=== PATIENT | male | born 1965 | race Caucasian/White ===

== ENCOUNTER → 2020-03-10 12:40 | Outpatient (BNVA) | payer BC, SELFPAY | PROVIDERS: PCP Internal Medicine; Visit Provider Surgery | DX: K80.10 Calculus of gallbladder with chronic cholecystitis without obstruction (principal) ==

== ENCOUNTER 2020-03-16 06:01 | Day surgery (SDC) | payer BC, SELFPAY ==
[2020-03-15 10:17] VITALS: BMI 25.7
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
[2020-03-16] VITALS (11 sets, daily range): BP systolic 110–137; BP diastolic 70–78; PULSE 61–96; RESP 16–18; TEMP 36.4–36.8; O2SAT 95–97
--- NOTE | 2020-03-16 | ECG_ITS ---
Test Reason : CAD PREOP Blood Pressure : / mmHG Vent. Rate : 056 BPM Atrial Rate : 056 BPM P-R Int : 140 ms QRS Dur : 106 ms QT Int : 434 ms P-R-T Axes : 038 000 010 degrees QTc Int : 418 ms Sinus bradycardia Moderate voltage criteria for LVH, may be normal variant Borderline ECG No previous ECGs available Referred By: Lydia Zhou Electronically Signed By:JOSE CHANDLER
[2020-03-16] MEDS: Lactated Ringers 1,000 ML 100 ML IVCONT (06:30)
[2020-03-16] MEDS: Scopolamine 1.5 MG PATCH.TD.3 TRANSDERMA (06:51)
--- NOTE | 2020-03-16 07:34 | MHC.SHP ---
Pre-Procedural Eval Section A The patient is an INPATIENT: No The History & Physical has been completed within 30 days and I have reviewed it.: Yes Section B Chief Complaint: Symptomatic Chronic Calculous Cholecystitis Allergies: Allergies Allergy/AdvReac Type Severity Reaction Status Date / Time No Known Allergies Allergy Mild NONE Verified 03/10/20 15:03 Plan Diagnosis/Plan: Unchanged Patient has been examined and remains a candidate for the planned procedure
--- NOTE | 2020-03-16 08:59 | PM.OP ---
Brief Operative Note Date of procedure: 03/16/20 Pre-op diagnosis: chronic cholecystitis, cholelithiasis Post-op diagnosis: same Procedure: Laparoscopic cholecystectomy Surgeon: Chetna Cobian MD Anesthesia: GETA Preparer Samples And Repairs: Connie Salgado Estimated blood loss (mL): 10 Pathology: other (gallbladder) Condition: stable Disposition: PACU
[2020-03-16] MEDS: fentaNYL citrate/PF 100 MCG/2 ML VIAL 50 MCG IVPUSH ×2 (09:38→09:50)
--- NOTE | 2020-03-16 09:46 | P.OP_ITS ---
Operative Note Operative Note Narrative: Preoperative diagnosis: Chronic cholecystitis and cholelithiasis Postoperative diagnosis same Procedure laparoscopic cholecystectomy Supervisor Electronic Coils: Connie Cutler Anesthesia: General endotracheal Estimated blood loss: 10 cc Specimen: Gallbladder Immediate complications: None Indications: Mr. Cormier 54-year-old gentleman with recent onset Of episodic right upper quadrant abdominal pain exacerbated by eating. Workup reveals gallstones. procedure in detail: with the patient in the supine position following induction of adequate general anesthesia, the abdomen was prepped with ChloraPrep and was draped sterilely. Time-out procedure was performed. 2 g of cefotetan were infused for antibiotic prophylaxis. Each trocar site was infiltrated with local anesthetic prior to making incisions. An infraumbilical incision was made and was carried down to the level the fascia. The fascia was elevated in the midline with Aubrie clamp and holding sutures of 0 Polysorb were placed on either side. The Aubrie was then released and the fascia was split in the midline. The peritoneal cavity was entered and has on trocar was inserted and stabilized with the fascial sutures. The abdomen was insufflated with carbon dioxide to pressure 15 mm of mercury. The 0 degree 5 mm laparoscopic was inserted and the abdomen was inspected. No abnormalities were noted initially. The patient was placed in reverse Trendelenburg position and rotated left side down. The gallbladder was grasped along the fundus at the anterior liver margin. It was then elevated. It adhesions were present between the omentum and the gallbladder surface. These were taken down using a combination of blunt and cautery dissection. The gallbladder was then grasped along the fundus and retracted laterally. Dissection was continued along the anterior aspect of the infundibulum moving medially to expose the gallbladder cystic duct junction. The cystic duct was then dissected free circumferentially yet adjacent to the gallbladder. Dissection was carried along the superomedial aspect of the gallbladder to identify the cystic artery. Two branches were identified and were dissected free. Dissection was continued lateral to the cystic artery to obtain the critical view. Once this was done, the cystic duct was doubly clipped just medial to the junction with the gallbladder, singly clipped at the junction with the gallbladder and divided between clips. The branches of the cystic artery were then doubly clipped on the patient's side and singly clipped on the gallbladder side and divided. The gallbladder was dissected free from the liver bed using a combination of gentle blunt and cautery dissection. As the gallbladder was being freed from the liver bed, an additional small vascular branch was identified and was divided between clips. Once the gallbladder was completely freed from the liver bed, laparoscopic was removed and reinserted through the upper medial trocar. The specimen pouch was inserted through the Rosa trocar and advanced into the right upper quadrant. The gallbladder was placed into the pouch and the pouch was closed and withdrawn Along with the Rosa trocar. The Rosa was then reinserted and the laparoscopic was placed back through it. The operative field was visualized. Clips were intact on the cystic duct and cystic artery stumps. There was no evidence of bleeding. The right upper quadrant was copiously irrigated with saline solution. Patient was turned to the supine position. Upper abdominal trocars were removed under direct vision. No bleeding was noted from trocar sites. Insufflation was discontinued and the Dozier trocar was removed With the laparoscope. Fascia at the Rosa site was closed with figure 8 suture of 0 Polysorb and holding sutures were tied to 1 another. Skin incisions were closed with subcuticular sutures of 4 0 Polysorb and Steri-Strips gauze and small adhesive dressings were applied. He tolerated the procedure well and was transported to the PACU in stable condition. There were no immediate complications.
[2020-03-16] MEDS: oxyCODONE HCl Immed Release 5 MG TABLET PO (10:12)
[2020-03-16] MEDS: ondansetron HCL 4 MG/2 ML VIAL IVPUSH (10:38)
--- NOTE | 2020-03-16 11:35 | HO.POSTANES ---
Post Anesthesia Evaluation Post Anesthesia Evaluation Vital Signs: Vital Signs Temp Pulse Resp BP Pulse Ox 03/16/20 10:27 97.5 F 65 18 136/73 97 03/16/20 10:12 69 18 137/78 96 03/16/20 09:55 65 18 133/77 96 03/16/20 09:50 96 18 130/77 95 03/16/20 09:44 61 18 116/77 95 03/16/20 09:39 64 18 116/71 97 03/16/20 09:24 62 18 110/75 96 03/16/20 09:19 63 18 125/70 95 03/16/20 09:14 62 18 122/71 95 03/16/20 09:09 98.3 F 66 18 134/76 95 03/16/20 06:42 97.5 F 62 16 136/78 97 Anesthesia: General Endotracheal-GETA Mental Status: Awake Pain Control: Satisfactory Nausea/Vomiting: None Hydration: Adequate Anesthesia-Related Issues: No Anes. Related Issues
--- NOTE | 2020-03-17 08:24 | PC.NURSE ---
Pt. called on 03-17-2020 at 0830 for post op call. Pt reports unrelieved pain despite taking pain medications. Pt referred to .
== END 2020-03-16 11:35 | disposition home or self-care (01) ==
PROVIDERS: PCP Internal Medicine; Visit Provider Surgery
PROC: 0FT44ZZ Resection of Gallbladder, Percutaneous Endoscopic Approach (ICD-10-PCS; CPT 47562; principal; 2020-03-16 07:30)
DX: K80.10 Calculus of gallbladder with chronic cholecystitis without obstruction (principal); K82.8 Other specified diseases of gallbladder; I10 Essential (primary) hypertension; G89.29 Other chronic pain; M54.9 Dorsalgia, unspecified; I71.2 Thoracic aortic aneurysm, without rupture; Q23.1 Congenital insufficiency of aortic valve; Z87.442 Personal history of urinary calculi; Z80.1 Family history of malignant neoplasm of trachea, bronchus and lung; Z79.899 Other long term (current) drug therapy; Z79.82 Long term (current) use of aspirin
CPT/HCPCS: 47562; 88304; 93005; 93010; J0131; J0330; J0690; J1100; J2250; J2405; J2765; J3010

== ENCOUNTER → 2020-03-18 10:34 | Outpatient (BNVA) | payer BC, SELFPAY | PROVIDERS: PCP Internal Medicine; Visit Provider Surgery | DX: Z76.89 Persons encountering health services in other specified circumstances (principal) ==

== ENCOUNTER → 2020-03-23 15:46 | Outpatient (BNVA) | payer BC, SELFPAY | PROVIDERS: PCP Internal Medicine; Visit Provider Surgery | DX: Z13.89 Encounter for screening for other disorder (principal) | CPT/HCPCS: 99024 ==

== ENCOUNTER 2020-04-09 09:41 | Outpatient (REF) | payer BC, SELFPAY ==
[2020-04-09 11:18] LABS: Alanine Aminotransferase 13 U/L (0-40); Albumin Level 4.3 g/dL (3.5-5.0); Alkaline Phosphatase 57 U/L (39-117); Anion Gap 12 (12-20); Aspartate Amino Transferase 13 U/L (5-37); Bilirubin Total 0.8 mg/dL (0.0-1.0); Blood Urea Nitrogen 16 mg/dL (9-16); Calcium 8.5 mg/dL (8.4-10.2); Carbon Dioxide 27 mmol/L (22-29); Chloride 104 mmol/L (96-108); Cholesterol 125 mg/dL; Estimated Glomerular Filt Rate > 60; Glucose Fasting 97 mg/dL (60-99); HDL Cholesterol 41 mg/dL; LDL Cholesterol Calculated 71 mg/dl; Potassium 4.3 mmol/l (3.3-5.1); Sodium 139 mmol/L (135-145); Total Protein 6.8 g/dL (6.5-8.0); Triglycerides 66 mg/dL
== END 2020-04-09 09:42 | disposition home or self-care (01) ==
LOC: HO.LAB 09:41
PROVIDERS: Visit Provider Internal Medicine
DX: I10 Essential (primary) hypertension (principal)
CPT/HCPCS: 80053; 80061

== ENCOUNTER → 2020-04-12 15:06 | Outpatient (BNVA) | payer BC, SELFPAY | PROVIDERS: PCP Internal Medicine; Visit Provider Surgery | DX: Z76.89 Persons encountering health services in other specified circumstances (principal) ==

== ENCOUNTER → 2020-04-22 14:49 | Outpatient (REF) | payer BC, SELFPAY ==
--- NOTE | 2020-04-22 15:00 | CA_ITS ---
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 Normal LV systolic and diastolic function 2. Mildly dilated ascending aorta 3. Bicuspid aortic valve with eccentric mild aortic regurgitation 4. Normal RV systolic pressure 5. No pericardial effusion Findings Left Ventricle Normal left ventricular size, thickness, and systolic function. The visually estimated ejection fraction is between 60-65%. Diastolic function is normal for age. Right Ventricle Normal right ventricular cavity size and systolic function. Atria Both atria are normal in size. There is no evidence of interatrial shunt. Aortic Valve There is a bicuspid aortic valve. There is no aortic valve stenosis. There is mild aortic valve regurgitation. Mitral Valve Normal mitral valve structure and function. There is trace mitral valve regurgitation. There is no mitral valve stenosis. Pulmonic Valve The pulmonic valve is likely normal. There is trace to mild pulmonic valve regurgitation. Tricuspid Valve Normal tricuspid valve structure. There is mild tricuspid valve regurgitation. The right ventricular systolic pressure is normal. The right ventricular systolic pressure is 37 mmHg. Normal right atrial pressure. There is no evidence of pulmonary hypertension. Great Vessels The pulmonary artery was not well visualized. There is mild dilatation of the ascending aorta. Venous The inferior vena cava is normal in size and collapses greater than 50% with inspiration. Pericardium/Pleural There is no evidence of pericardial effusion. Prior Study Comparison No significant change compared to prior study dated: 04/30/2019. Measurements 2D Linear Measurements IVSd: 1.35 0.6-0.9/0.6-1.0 cm LVIDd: 5.19 3.9-5.3/4.2-5.9 cm LVIDd Index: 2.72 2.4-3.2/2.2-3.1 cm/m2 LVIDs: 2.82 2.0-3.6 cm LVPWd: 1.38 0.7-1.1 cm Ao Root: 3.90 2.1-3.5 cm LA Diam: 4.30 2.7-3.8/3.0-4.0 cm LAIDs Index: 2.25 1.5-2.3 cm/m2 LV Mass: 371.27 67-162/88-224 g LV Mass Index: 194.38 43-95/49-115 g/m2 LVOT Diam: 2.50 3.0+(-)1.3 cm Mitral Valve MV Pk E: 0.80 MV PK A: 0.58 MV Decel Time: 248.00 E/A: 1.40 E'Lateral: 12.30 E'Medial: 7.16 E/E' Med: 11.10 E/E' Lat: 6.50 PHT: 73.00 MVA PHT: 3.01 Decel [place]: 3.21 Aortic Valve AoV Pk Afshin: 2.24 AoV Mn Afshin: 1.53 AoV VTI: 0.52 AoV Pk Grad: 20.00 Aov Mn Grad: 11.00 KENA Cont.VTI: 2.75 AI Pk Afshin: 4.24 AI [place]: 2.09 LVOT LVOT Pk Afshin: 1.22 LVOT Mn Afshin: 0.85 LVOT VTI: 0.29 LVOT Pk Grad: 6.00 LVOT Mn Grad: 3.00 LVOT Diam: 2.50 LVOT Area: 4.91 Diastolic Function MV Pk E: 0.80 MV Pk A: 0.58 E/A: 1.40 E'Medial: 7.16 E/E' Med: 11.10 E' Laterial: 12.30 E/E' Lat: 6.50 Tricuspid Valve TR Pk Afshin: 2.71 TR Pk Grad: 29.00 RA Press: 8.00 RVSP: 37.00 Great Vessels Aorta Ao Root-2D: 3.90 2.0-3.7 cm Ao Asc: 4.10 2.1-3.4 cm Pulmonary Valve PV Pk Afshin: 0.92 Peak PV Grad: 3.00 Updated in Other Vendor System with Status of Final Celio Sotelo MD electronically signed on 04/22/2020 4:25:09 PM with status of Final
== END ==
LOC: HO.CARD 14:49
PROVIDERS: PCP Internal Medicine; Visit Provider Internal Medicine Cardiovascular Disease
DX: I35.1 Nonrheumatic aortic (valve) insufficiency (principal); R07.9 Chest pain, unspecified
CPT/HCPCS: 93306

== ENCOUNTER → 2020-05-09 13:04 | Outpatient (BNVA) | payer BC, SELFPAY | PROVIDERS: PCP Internal Medicine; Referring Provider Internal Medicine; Visit Provider Internal Medicine Cardiovascular Disease | DX: Z76.89 Persons encountering health services in other specified circumstances (principal) ==

== ENCOUNTER 2020-07-27 16:04 | Outpatient (REF) | payer BC, SELFPAY ==
--- NOTE | ~2020-07-27 | XR_ITS ---
EXAMINATION: XR KNEE, LEFT CLINICAL INFORMATION: Left knee pain. COMPARISON: None TECHNIQUE: Four views of the left knee. FINDINGS: Mild tricompartmental joint space narrowing and chondrocalcinosis is seen. There is no acute fracture or dislocation. No significant joint effusion is seen. The soft tissues are unremarkable. XR/XR knee LT 4V IMPRESSION: Mild check for metal degenerative joint changes without overt acute abnormality.
--- NOTE | ~2020-07-27 | US_ITS ---
EXAMINATION: US VENOUS ULTRASOUND WITH DOPPLER LOWER EXTREMITY, LEFT CLINICAL INFORMATION: Left lower extremity pain and swelling. Assess for occult DVT. COMPARISON: Left lower extremity venous ultrasound with Doppler 12/02/2019 TECHNIQUE: Ultrasound of the deep veins is performed from the hip to the calf with compression sonography and color and pulse Doppler assessment. Spectral analysis with color-flow imaging is performed. FINDINGS: There is normal venous compression and respiratory variation and augmented flow. The visualized common femoral vein, superficial femoral vein, profunda femoral vein, popliteal vein, and the trifurcation region shows no evidence of deep venous thrombosis. There is posterior medial popliteal fossa cyst measuring 3.5 x 2.6 x 3.2 cm. Preliminary report provided by cook 3 pastry at 1635 hours. US/US venous duplex LE IMPRESSION: 1. No DVT demonstrated in the left lower extremity. 2. Popliteal fossa cyst 3.5 x 2.6 x 3.2 cm.
== END 2020-07-27 16:05 | disposition home or self-care (01) ==
LOC: HO.US 16:04
PROVIDERS: Visit Provider Nurse Practitioner Family
DX: M25.562 Pain in left knee (principal); M79.662 Pain in left lower leg
CPT/HCPCS: 73564; 93971

== ENCOUNTER 2021-01-14 08:43 | Outpatient (REF) | payer BC, SELFPAY ==
[2021-01-14 09:52] LABS: MANUAL DIFF FLAG NO
[2021-01-14 10:14] LABS: Basophils Percent Auto 0.7 % (0-2); Eosinophils Absolute Auto 0.2 X10*3/uL (0.0-0.4); Eosinophils Percent Auto 3.7 % (0-4); Hematocrit 42.2 % (42-52); Hemoglobin 14.2 g/dl (14.0-18.0); Imm Gran Abs Auto 0.01 X10*3/uL (0.00-0.03); Imm Gran Pct Auto 0.2 % (0.0-0.4); Lymphocytes Absolute Auto 1.4 X10*3/uL (1.2-4.9); Lymphocytes Percent Auto 31.5 % (20-40); Mean Corpuscular HGB Conc 33.6 g/dl (31.0-36.0); Mean Corpuscular Hemoglobin 33.1 pg (27.0-33.0); Mean Corpuscular Volume 98.4 fL (80-98); Mean Platelet Volume 10.4 fL (9.4-12.4); Monocytes Absolute Auto 0.5 X10*3/uL (0.1-1.2); Monocytes Percent Auto 10.3 % (2-11); Neutrophils Absolute Auto 2.3 X10*3/uL (2.0-8.3); Neutrophils Percent Auto 53.6 % (45-73); Platelet Count 185 X10*3/uL (160-400); Red Blood Count 4.29 X10*6/uL (4.60-5.80); Red Cell Distribution Width 11.9 % (11.0-16.0); White Blood Count 4.4 X10*3/uL (4.8-10.8)
[2021-01-14 10:23] LABS: Alanine Aminotransferase 12 U/L (0-40); Albumin Level 4.1 g/dL (3.5-5.0); Alkaline Phosphatase 59 U/L (39-117); Anion Gap 11 (12-20); Aspartate Amino Transferase 17 U/L (5-37); Bilirubin Total 0.8 mg/dL (0.0-1.0); Blood Urea Nitrogen 17 mg/dL (9-16); Calcium 9.1 mg/dL (8.4-10.2); Carbon Dioxide 27 mmol/L (22-29); Chloride 106 mmol/L (96-108); Cholesterol 118 mg/dL; Estimated Glomerular Filt Rate > 60; Glucose Fasting 96 mg/dL (60-99); HDL Cholesterol 36 mg/dL; LDL Cholesterol Calculated 69 mg/dl; Potassium 4.4 mmol/L (3.3-5.1); Sodium 140 mmol/L (135-145); Total Protein 6.6 g/dL (6.5-8.0); Triglycerides 68 mg/dL
== END 2021-01-14 08:44 | disposition home or self-care (01) ==
LOC: HO.LAB 08:43
PROVIDERS: PCP Internal Medicine; Visit Provider Internal Medicine
DX: E78.5 Hyperlipidemia, unspecified (principal); I10 Essential (primary) hypertension; I48.0 Paroxysmal atrial fibrillation
CPT/HCPCS: 36415; 80053; 80061; 85025

== ENCOUNTER → 2021-04-28 12:38 | Outpatient (REF) | payer BC, SELFPAY ==
--- NOTE | 2021-04-28 12:42 | CA_ITS ---
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 - Normal right ventricular cavity size and systolic function. - The left atrium is likely dilated. - There is a bicuspid aortic valve. There is mild calcification of the aortic valve. There is no aortic valve stenosis. There is mild aortic valve regurgitation. - There is mild dilatation of the ascending aorta measuring 4.10 cm and mild dilatation of the aortic arch measuring 4.10 cm. - There is mildly increased left ventricular wall thickness. Findings Left Ventricle Normal left ventricular size and systolic function. There is mildly increased left ventricular wall thickness. The visually estimated ejection fraction is between 65-70%. There is no evidence of regional wall motion abnormalities. Diastolic function is normal for age. Right Ventricle Normal right ventricular cavity size and systolic function. Atria The left atrium is likely dilated. Aortic Valve There is a bicuspid aortic valve. There is mild calcification of the aortic valve. There is no aortic valve stenosis. There is mild aortic valve regurgitation. Mitral Valve Normal mitral valve structure and function. There is no mitral valve regurgitation. There is no mitral valve stenosis. Pulmonic Valve Normal pulmonic valve structure and function. There is trace pulmonic valve regurgitation. Tricuspid Valve Normal tricuspid valve structure and function. There is trace tricuspid valve regurgitation. Normal right atrial pressure. There is no evidence of pulmonary hypertension. Great Vessels There is mild dilatation of the ascending aorta measuring 4.10 cm and mild dilatation of the aortic arch measuring 4.10 cm. The visualized portions of the pulmonary artery and branches are normal. Venous The inferior vena cava is normal in size and collapses greater than 50% with inspiration. Pericardium/Pleural There is no evidence of pericardial effusion. Prior Study Comparison Changes noted compared to prior study dated: 04/22/2020. Mildly increased LV wall thickness. Measurements 2D Linear Measurements IVSd: 1.26 0.6-0.9/0.6-1.0 cm LVIDd: 5.18 3.9-5.3/4.2-5.9 cm LVIDd Index: 2.68 2.4-3.2/2.2-3.1 cm/m2 LVIDs: 2.98 2.0-3.6 cm LVPWd: 1.24 0.7-1.1 cm Ao Root: 3.90 2.1-3.5 cm LA Diam: 3.60 2.7-3.8/3.0-4.0 cm LAIDs Index: 1.87 1.5-2.3 cm/m2 LV Mass: 326.55 67-162/88-224 g LV Mass Index: 169.20 43-95/49-115 g/m2 LVOT Diam: 2.20 3.0+(-)1.3 cm Mitral Valve MV Pk E: 0.46 MV PK A: 0.70 MV Decel Time: 301.00 E/A: 0.70 E'Lateral: 13.80 E'Medial: 7.51 E/E' Med: 6.10 E/E' Lat: 3.30 PHT: 88.00 MVA PHT: 2.50 Decel [place]: 1.52 Aortic Valve AoV Pk Afshin: 2.00 AoV Mn Afshin: 1.35 AoV VTI: 0.45 AoV Pk Grad: 16.00 Aov Mn Grad: 8.00 KENA Cont.VTI: 2.71 AI Pk Afshin: 3.34 AI [place]: 1.45 LVOT LVOT Pk Afshin: 1.33 LVOT Mn Afshin: 0.92 LVOT VTI: 0.32 LVOT Pk Grad: 7.00 LVOT Mn Grad: 4.00 LVOT Diam: 2.20 LVOT Area: 3.80 Diastolic Function MV Pk E: 0.46 MV Pk A: 0.70 E/A: 0.70 E'Medial: 7.51 E/E' Med: 6.10 E' Laterial: 13.80 E/E' Lat: 3.30 Right Ventricle TAPSE (mm): 3.23 Tricuspid Valve TR Pk Afshin: 1.59 TR Pk Grad: 10.00 RA Press: 3.00 RVSP: 13.00 Great Vessels Aorta Ao Root-2D: 3.90 2.0-3.7 cm Ao Asc: 4.10 2.1-3.4 cm Ao Arch: 4.10 Pulmonary Valve PV Pk Afshin: 1.00 Peak PV Grad: 4.00 Updated in Other Vendor System with Status of Final Denis Malloyr MD electronically signed on 05/01/2021 7:42:30 PM with status of Final
== END ==
LOC: HO.CARD 12:38
PROVIDERS: PCP Internal Medicine; Visit Provider Internal Medicine Cardiovascular Disease
DX: I71.2 Thoracic aortic aneurysm, without rupture (principal); I48.0 Paroxysmal atrial fibrillation; I35.1 Nonrheumatic aortic (valve) insufficiency; I10 Essential (primary) hypertension
CPT/HCPCS: 93306

== ENCOUNTER → 2021-05-09 15:01 | Outpatient (BNVA) | payer BC, SELFPAY | PROVIDERS: PCP Internal Medicine; Referring Provider Internal Medicine; Visit Provider Internal Medicine Cardiovascular Disease ==

== ENCOUNTER 2021-06-05 06:51 | Outpatient (REF) | payer BC, SELFPAY ==
[2021-06-05 07:01] LABS: MANUAL DIFF FLAG NO
[2021-06-05 07:20] LABS: Basophils Percent Auto 0.4 % (0-2); Eosinophils Absolute Auto 0.3 X10*3/uL (0.0-0.4); Hematocrit 43.5 % (42.0-52.0); Hemoglobin 14.5 g/dl (14.0-18.0); Imm Gran Abs Auto 0.04 X10*3/uL (0.00-0.03); Imm Gran Pct Auto 0.4 % (0.0-0.4); Lymphocytes Absolute Auto 2.1 X10*3/uL (1.2-4.9); Lymphocytes Percent Auto 19.5 % (20-40); Mean Corpuscular HGB Conc 33.3 g/dl (31.0-36.0); Mean Corpuscular Volume 99.1 fL (80.0-98.0); Mean Platelet Volume 9.7 fL (9.4-12.4); Neutrophils Absolute Auto 7.3 x10*3/uL (2.0-8.3); Neutrophils Percent Auto 67.7 % (45-73); Platelet Count 197 X10*3/uL (160-400); Red Blood Count 4.39 X10*6/uL (4.60-5.80); Red Cell Distribution Width 11.9 % (11.0-16.0); White Blood Count 10.8 X10*3/uL (4.8-10.8)
== END 2021-06-05 06:52 | disposition home or self-care (01) ==
LOC: HO.LAB 06:51
PROVIDERS: PCP Internal Medicine; Visit Provider Internal Medicine
DX: D72.819 Decreased white blood cell count, unspecified (principal)
CPT/HCPCS: 36415; 85025

== ENCOUNTER 2021-10-14 09:36 | Outpatient (REF) | payer BC, SELFPAY ==
[2021-10-14 11:19] LABS: Alanine Aminotransferase 14 U/L (0-40); Albumin Level 4.3 g/dL (3.5-5.0); Alkaline Phosphatase 65 U/L (39-117); Anion Gap 11 (12-20); Aspartate Amino Transferase 20 U/L (5-37); Bilirubin Total 0.9 mg/dL (0.0-1.0); Blood Urea Nitrogen 19 mg/dL (9-16); Calcium 9.7 mg/dL (8.4-10.2); Carbon Dioxide 26 mmol/L (22-29); Chloride 108 mmol/L (96-108); Cholesterol 139 mg/dL; Estimated Glomerular Filt Rate > 60; Glucose Fasting 95 mg/dL (60-99); HDL Cholesterol 42 mg/dL; LDL Cholesterol Calculated 85 mg/dl; Potassium 4.4 mmol/L (3.3-5.1); Sodium 141 mmol/L (135-145); Total Protein 7.2 g/dL (6.5-8.0); Triglycerides 61 mg/dL
== END 2021-10-14 09:37 | disposition home or self-care (01) ==
LOC: HO.LAB 09:36
PROVIDERS: PCP Internal Medicine; Visit Provider Internal Medicine
DX: E78.5 Hyperlipidemia, unspecified (principal); E78.00 Pure hypercholesterolemia, unspecified
CPT/HCPCS: 36415; 80053; 80061

== ENCOUNTER 2022-03-10 08:47 | Outpatient (REF) | payer OTHER, SELFPAY ==
[2022-03-10 10:04] LABS: Alanine Aminotransferase 11 U/L (0-40); Albumin Level 4.4 g/dL (3.5-5.0); Alkaline Phosphatase 57 U/L (39-117); Anion Gap 12 (12-20); Aspartate Amino Transferase 13 U/L (5-37); Bilirubin Total 0.6 mg/dL (0.0-1.0); Blood Urea Nitrogen 19 mg/dL (9-16); Calcium 9.3 mg/dL (8.4-10.2); Carbon Dioxide 26 mmol/L (22-29); Chloride 108 mmol/L (96-108); Cholesterol 130 mg/dL; Estimated Glomerular Filt Rate > 60; Glucose Fasting 95 mg/dL (60-99); HDL Cholesterol 39 mg/dL; LDL Cholesterol Calculated 80 mg/dl; Potassium 4.4 mmol/L (3.3-5.1); Sodium 142 mmol/L (135-145); Total Protein 6.8 g/dL (6.5-8.0); Triglycerides 57 mg/dL
== END 2022-03-10 08:48 | disposition home or self-care (01) ==
LOC: HO.LAB 08:47
PROVIDERS: PCP Internal Medicine; Visit Provider Internal Medicine
DX: E78.5 Hyperlipidemia, unspecified (principal); E78.00 Pure hypercholesterolemia, unspecified
CPT/HCPCS: 36415; 80053; 80061

== ENCOUNTER → 2022-04-24 15:44 | Outpatient (REF) | payer OTHER, SELFPAY ==
--- NOTE | 2022-04-24 15:47 | CA_ITS ---
Transthoracic Echocardiogram Patient (Last, First, Middle): Ned Cormier A Gender: Male Date of : 1965 Age: 56 Procedure Date: 04/24/2022 Procedure Type: Transthoracic Echocardiogram Location: OP Height: 172.72 cm Weight: 78.93 kg BSA: 1.93 m2 Heart Rate: bpm BP: 126 / 72 mmHg Associate Material Handler: [id number] Referring MD: Celio Sotelo MD Dba Developer: Celio Sotelo MD Symptoms: I71.2 - Thoracic aortic aneurysm, without rupture Study Quality: Fair ECG Rhythm: Sinus Conclusions: - 1. Normal LV systolic function with mild LVH with grade 1 diastolic dysfunction 2. Mildly dilated left atrium 3. Mild aortic regurgitation 4. Mildly dilated ascending aorta at 4.2 cm 5. No pericardial effusion Findings Left Ventricle Normal left ventricular size and systolic function. There is mildly increased left ventricular wall thickness. The visually estimated ejection fraction is between 65-70%. Spectral Doppler is indicative of an impaired relaxation filling pattern. E/E prime ratio is <8, consistent with normal filling pressures. Evidence suggests grade I (mild) diastolic dysfunction. Right Ventricle Normal right ventricular cavity size and systolic function. Atria The left atrium is mildly dilated. There is lipomatous hypertrophy of the interatrial septum. There is no evidence of interatrial shunt. The right atrium is normal in size. Aortic Valve There is mild calcification of the aortic valve. There is moderate thickening of the aortic valve. There is no aortic valve stenosis. There is mild aortic valve regurgitation. Mitral Valve There is mild anterior and posterior mitral leaflet thickening. There is no mitral valve regurgitation. There is no mitral valve stenosis. Pulmonic Valve The pulmonic valve is likely normal. There is mild pulmonic valve regurgitation. Tricuspid Valve Normal tricuspid valve structure. Tricuspid regurgitation envelope is inadequate for calculation of right ventricular systolic pressure. Normal right atrial pressure. Great Vessels The pulmonary artery was not well visualized. There is mild dilatation of the ascending aorta measuring 4.20 cm. Venous The inferior vena cava is normal in size and collapses greater than 50% with inspiration. Pericardium/Pleural There is no evidence of pericardial effusion. Prior Study Comparison No significant change compared to prior study dated: 04/28/2021. Measurements 2D Linear Measurements IVSd: 1.25 0.6-0.9/0.6-1.0 cm LVIDd: 5.14 3.9-5.3/4.2-5.9 cm LVIDd Index: 2.66 2.4-3.2/2.2-3.1 cm/m2 LVIDs: 2.53 2.0-3.6 cm LVPWd: 1.19 0.7-1.1 cm LA Diam: 3.70 2.7-3.8/3.0-4.0 cm LAIDs Index: 1.92 1.5-2.3 cm/m2 LV Mass: 311.71 67-162/88-224 g LV Mass Index: 161.51 43-95/49-115 g/m2 LVOT Diam: 2.20 3.0+(-)1.3 cm 2D Systolic Function EF 4C: 65.30 >55% EF 2C: 68.50 >55% EF BiP: 67.10 >55% Mitral Valve MV Pk E: 0.59 MV PK A: 0.54 MV Decel Time: 273.00 E/A: 1.10 E'Lateral: 9.36 E'Medial: 5.77 E/E' Med: 10.20 E/E' Lat: 6.30 PHT: 80.00 MVA PHT: 2.75 Decel Kent: 2.15 Aortic Valve AoV Pk Afshin: 1.96 AoV Mn Afshin: 1.25 AoV VTI: 0.42 AoV Pk Grad: 15.00 Aov Mn Grad: 8.00 KENA Cont.VTI: 2.92 AI Pk Afshin: 3.42 AI Kent: 1.56 LVOT LVOT Pk Afshin: 1.38 LVOT Mn Afshin: 0.91 LVOT VTI: 0.32 LVOT Pk Grad: 8.00 LVOT Mn Grad: 4.00 LVOT Diam: 2.20 LVOT Area: 3.80 Diastolic Function MV Pk E: 0.59 MV Pk A: 0.54 E/A: 1.10 E'Medial: 5.77 E/E' Med: 10.20 E' Laterial: 9.36 E/E' Lat: 6.30 Right Ventricle TAPSE (mm): 29.10 TVS' Afshin: 18.00 Tricuspid Valve RA Press: 3.00 Great Vessels Aorta Sinus of Valsalva: 4.09 2.0-3.[address] Ridge: 3.46 1.7-3.4 cm Ao Asc: 4.20 2.1-3.4 cm Ao Arch: 3.10 Updated in Other Vendor System with Status of Final Celio Sotelo MD electronically signed on 04/25/2022 12:47:20 PM with status of Final
== END ==
LOC: HO.CARD 15:44
PROVIDERS: PCP Internal Medicine; Visit Provider Internal Medicine Cardiovascular Disease
DX: I71.20 Thoracic aortic aneurysm, without rupture, unspecified (principal)
CPT/HCPCS: 93306

== ENCOUNTER → 2022-05-09 14:41 | Outpatient (BNVA) | payer OTHER, SELFPAY | PROVIDERS: PCP Internal Medicine; Referring Provider Internal Medicine; Visit Provider Internal Medicine Cardiovascular Disease | DX: I48.0 Paroxysmal atrial fibrillation (principal); I71.20 Thoracic aortic aneurysm, without rupture, unspecified; I10 Essential (primary) hypertension | CPT/HCPCS: 93005 ==

== ENCOUNTER → 2022-05-14 08:33 | Outpatient (REF) | payer OTHER, SELFPAY ==
--- NOTE | 2022-05-14 08:36 | CA_ITS ---
Acquisition Time: 2022-05-14 08:50:03 Total Exercise Time: 00:09:15 Test Indications: AFIB Medications: SEE CHART Protocol: CHRIS Max HR: 093 BPM 56% of Pred: 164 BPM Max BP: 146/080 mmHG Max Work Load: 10.5 METS Exercise stress test with exercise 9 min 15 sec of Chris protocol, achieving 56% MPHR, 10.5 METs, with report of leg fatigue, mild sob and need to stop, no chest discomfort, with isolated PACs and PVCs, one 3 breat atrial run, with blunted chronotropic and normotensive response to exercise, with nondiagnostic EKG for ischemia due to suboptimal heart rate. Test reviewed with Dr Sotelo Referred By: Celio Sotelo Overread By: KARO BENTLEY
--- NOTE | 2022-05-14 08:36 | ECG_ITS ---
Test Reason : PAF Blood Pressure : / mmHG Vent. Rate : 052 BPM Atrial Rate : 052 BPM P-R Int : 150 ms QRS Dur : 108 ms QT Int : 430 ms P-R-T Axes : 052 017 030 degrees QTc Int : 399 ms Sinus bradycardia Otherwise normal ECG When compared with ECG of 16-MAR-2020 06:41, No significant change was found Referred By: Celio Sotelo Electronically Signed By:CELIO SOTELO MD
== END ==
LOC: HO.CARD 08:33
PROVIDERS: Visit Provider Internal Medicine Cardiovascular Disease
DX: I48.0 Paroxysmal atrial fibrillation (principal)
CPT/HCPCS: 93005; 93017

== ENCOUNTER → 2022-06-13 08:26 | Outpatient (REF) | payer OTHER, SELFPAY ==
--- NOTE | ~2022-06-13 | NM_ITS ---
Lexiscan Myocardial perfusion study Indication: Abnormal stress test, assess for ischemia Technique: The patient was brought in for a Lexiscan perfusion study on 06/13/2022 and was injected 0.4 mg of Lexiscan intravenously. Within a minute of this injection 30 mCi of sestamibi was given intravenously. Images were obtained using the SPECT gamma camera interlaced with the gating device. Images were obtained in supine position. Resting perfusion study was performed on 06/14/2022. Patient was administered 30 mCi of sestamibi intravenously at rest. Images were then obtained in supine position. Images were processed with the software and compared side to side in short axis, horizontal long axis and vertical long axis views. Total DLP 94mGy-cm. Findings: Raw acquisition reviewed. The stress perfusion study showed mildly diminished tracer uptake in the basal part of inferior wall. There is improvement with CT attenuation correction suggestive of diaphragmatic attenuation artifact. The gated study shows normal LV systolic function with calculated LVEF of 67%. LV cavity is normal in size. The gated study shows normal wall thickening and contraction of segments. Resting study shows diminished tracer uptake along the inferior wall towards the basal aspect. There is improvement with CT attenuation correction suggestive of diaphragmatic attenuation artifact. Gating at rest reveals normal wall motion with ejection fraction at 51%. The findings are consistent with fixed basal inferior defect likely from diaphragmatic attenuation artifact. No clear reversible defects. NM/NM nyla perf SPECT rest & str Impression: 1. Myocardial perfusion imaging study shows no clear evidence of any ischemia or infarction. Likely normal perfusion. 2. Gated LVEF is 67% during stress and 51% during rest. 3. Transient ischemic dilatation not present. EKG component of the test reported separately.
--- NOTE | 2022-06-13 08:29 | CA_ITS ---
Acquisition Time: 2022-06-13 08:50:44 Total Exercise Time: 00:02:00 Test Indications: Abnormal Treadmill Test Medications: ALPRAZOLAM AMLODIPINE ASA ATORVASTATIN METOPROLOL FLECAINIDE Protocol: LEXISCAN Max HR: 090 BPM 54% of Pred: 164 BPM Max BP: 142/062 mmHG Max Work Load: 1.6 METS Pharmacological stress test with Lexiscan injection, while walking slow on treadmill, with mild sob, no chest discomfort, without arrythmia, with normotensive response to injection, with nondiagnostic EKG for ischemia. In recovery he was treated with Aminophylline 75mg IVP to reverse Lexiscan. Nuclear images pending. Test reviewed with Dr Dee. Referred By: Victorina Tompkins Overread By: VICTORINA TOMPKINS
== END ==
LOC: HO.CARD 08:26
PROVIDERS: Visit Provider Nurse Practitioner Family
DX: I48.0 Paroxysmal atrial fibrillation (principal); R94.39 Abnormal result of other cardiovascular function study
CPT/HCPCS: 78452; 93017; A9500; J0280; J2785

== ENCOUNTER → 2022-07-31 12:37 | Outpatient (BNVA) | payer OTHER, SELFPAY | PROVIDERS: PCP Internal Medicine; Referring Provider Internal Medicine; Visit Provider Internal Medicine Cardiovascular Disease | DX: I48.0 Paroxysmal atrial fibrillation (principal); I71.20 Thoracic aortic aneurysm, without rupture, unspecified; I10 Essential (primary) hypertension | CPT/HCPCS: 93005 ==

== ENCOUNTER 2022-07-31 13:45 | Outpatient (REF) | payer OTHER, SELFPAY ==
[2022-07-31 14:55] LABS: Anion Gap 11 (12-20); Blood Urea Nitrogen 16 mg/dL (9-16); Calcium 9.3 mg/dL (8.4-10.2); Carbon Dioxide 28 mmol/L (22-29); Chloride 106 mmol/L (96-108); Estimated Glomerular Filt Rate > 60; Glucose Random 74 mg/dL (60-115); Potassium 4.6 mmol/L (3.3-5.1); Sodium 140 mmol/L (135-145)
== END 2022-07-31 13:46 | disposition home or self-care (01) ==
LOC: HO.LAB 13:45
PROVIDERS: PCP Internal Medicine; Visit Provider Internal Medicine Cardiovascular Disease
DX: I48.0 Paroxysmal atrial fibrillation (principal); I71.20 Thoracic aortic aneurysm, without rupture, unspecified; I10 Essential (primary) hypertension
CPT/HCPCS: 36415; 80048

== ENCOUNTER 2023-02-18 15:20 | Outpatient (REF) | payer OTHER, SELFPAY ==
[2023-02-18 17:49] LABS: Anion Gap 12 (12-20); Blood Urea Nitrogen 15 mg/dL (9-16); Calcium 9.7 mg/dL (8.4-10.2); Carbon Dioxide 27 mmol/L (22-29); Chloride 108 mmol/L (96-108); Estimated Glomerular Filt Rate > 60; Glucose Random 87 mg/dL (60-115); Potassium 4.1 mmol/L (3.3-5.1); Sodium 143 mmol/L (135-145)
== END 2023-02-18 15:21 | disposition home or self-care (01) ==
LOC: HO.LAB 15:20
PROVIDERS: PCP Internal Medicine; Referring Provider Internal Medicine; Visit Provider Internal Medicine Cardiovascular Disease
DX: I48.0 Paroxysmal atrial fibrillation (principal); I71.20 Thoracic aortic aneurysm, without rupture, unspecified
CPT/HCPCS: 36415; 80048; 93005

== ENCOUNTER 2023-02-18 15:20 | Outpatient (AMB) | payer OTHER, SELFPAY ==
[2023-02-18 15:26] VITALS: BP 120/80; PULSE 52; BMI 27.1
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
== END 2023-02-18 16:02 | disposition home or self-care (01) ==
PROVIDERS: PCP Internal Medicine; Referring Provider Internal Medicine; Visit Provider Internal Medicine Cardiovascular Disease
DX: I48.0 Paroxysmal atrial fibrillation (principal); I71.20 Thoracic aortic aneurysm, without rupture, unspecified
CPT/HCPCS: 93010; 99214

== ENCOUNTER 2023-03-23 08:55 | Outpatient (REF) | payer OTHER, SELFPAY ==
[2023-03-23 10:07] LABS: Alanine Aminotransferase 11 U/L (0-40); Albumin Level 4.2 g/dL (3.5-5.0); Alkaline Phosphatase 55 U/L (39-117); Anion Gap 13 (12-20); Aspartate Amino Transferase 13 U/L (5-37); Bilirubin Total 0.6 mg/dL (0.0-1.0); Blood Urea Nitrogen 16 mg/dL (9-16); Calcium 9.8 mg/dL (8.4-10.2); Carbon Dioxide 26 mmol/L (22-29); Chloride 106 mmol/L (96-108); Cholesterol 134 mg/dL (<200); Estimated Glomerular Filt Rate > 60; Glucose Fasting 89 mg/dL (60-99); HDL Cholesterol 40 mg/dL (>40); LDL Cholesterol Calculated 81 mg/dL (<100); Potassium 4.3 mmol/L (3.3-5.1); Sodium 141 mmol/L (135-145); Triglycerides 69 mg/dL (<150)
== END 2023-03-23 08:56 | disposition home or self-care (01) ==
LOC: HO.LAB 08:55
PROVIDERS: PCP Internal Medicine; Visit Provider Internal Medicine
DX: Z00.00 Encounter for general adult medical examination without abnormal findings (principal); E78.00 Pure hypercholesterolemia, unspecified; E78.5 Hyperlipidemia, unspecified
CPT/HCPCS: 36415; 80053; 80061

== ENCOUNTER 2023-03-25 16:34 | Outpatient (AMB) | payer OTHER, SELFPAY ==
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
[2023-03-25 16:46] VITALS: BP 126/78; PULSE 64; O2SAT 96; BMI 27.1
== END 2023-03-25 17:08 | disposition home or self-care (01) ==
PROVIDERS: Visit Provider Internal Medicine
DX: I10 Essential (primary) hypertension (principal); I48.0 Paroxysmal atrial fibrillation; M54.16 Radiculopathy, lumbar region; E78.00 Pure hypercholesterolemia, unspecified
CPT/HCPCS: 99214

== ENCOUNTER → 2023-07-12 09:44 | Outpatient (REF) | payer OTHER, SELFPAY ==
--- NOTE | 2023-07-12 09:48 | CA_ITS ---
Transthoracic Echocardiogram Patient (Last, First, Middle): Ned Cormier A Gender: Male Date of : 1965 Age: 57 Procedure Date: 07/12/2023 Procedure Type: Transthoracic Echocardiogram Location: OP Height: 172.72 cm Weight: 80.74 kg BSA: 1.95 m2 Heart Rate: 51 bpm BP: 120 / 68 mmHg Aluminum Can Collector: SUDHIR Referring MD: Celio Sotelo MD Splicer Apprentice: Celio Sotelo MD Symptoms: I71.2 - Thoracic aortic aneurysm, without rupture Study Quality: Adequate w contrast ECG Rhythm: Bradycardia Conclusions: - 1. Normal LV ejection fraction 65-70% with moderate asymmetric septal hypertrophy without any clear evidence of obstructive physiology 2. Mild aortic regurgitation 3. Mildly dilated ascending aorta at 4.2 cm 4. No gross pericardial effusion Findings Procedure Information Contrast agent, definity, is being given per protocol without apparent complications. The quality of the study was technically difficult. The study quality is limited by lung artifact. Left Ventricle Normal left ventricular size, thickness, and systolic function. The visually estimated ejection fraction is between 65-70%. Spectral Doppler is indicative of a normal filling pattern. There is moderate septal asymmetric hypertrophy. Right Ventricle Normal right ventricular cavity size and systolic function. Atria The left atrium is likely dilated. There is no evidence of interatrial shunt. The right atrium is normal in size. Aortic Valve There is mild calcification of the aortic valve. There is no aortic valve stenosis. There is mild aortic valve regurgitation. Mitral Valve Normal mitral valve structure and function. There is trace mitral valve regurgitation. There is no mitral valve stenosis. Pulmonic Valve The pulmonic valve is likely normal. There is trace to mild pulmonic valve regurgitation. Tricuspid Valve Normal tricuspid valve structure. Tricuspid regurgitation envelope is inadequate for calculation of right ventricular systolic pressure. Normal right atrial pressure. Great Vessels The pulmonary artery was not well visualized. There is mild dilatation of the ascending aorta measuring 4.20 cm. Venous The inferior vena cava is normal in size and collapses greater than 50% with inspiration. Pericardium/Pleural There is no evidence of pericardial effusion. Prior Study Comparison No significant change compared to prior study dated: 04/24/2022. Measurements 2D Linear Measurements IVSd: 1.10 0.6-0.9/0.6-1.0 cm LVIDd: 7.04 3.9-5.3/4.2-5.9 cm LVIDd Index: 3.61 2.4-3.2/2.2-3.1 cm/m2 LVIDs: 4.04 2.0-3.6 cm LVPWd: 0.95 0.7-1.1 cm LA Diam: 4.10 2.7-3.8/3.0-4.0 cm LAIDs Index: 2.10 1.5-2.3 cm/m2 LV Mass: 416.97 67-162/88-224 g LV Mass Index: 213.83 43-95/49-115 g/m2 LVOT Diam: 2.40 3.0+(-)1.3 cm 2D Systolic Function EF 4C: 71.60 >55% EF 2C: 66.40 >55% EF BiP: 69.30 >55% Mitral Valve MV Pk E: 0.67 MV PK A: 0.48 MV Decel Time: 188.00 E/A: 1.40 E'Lateral: 5.98 E'Medial: 5.11 E/E' Med: 13.20 E/E' Lat: 11.30 PHT: 55.00 MVA PHT: 4.00 Decel Fleming: 3.57 Aortic Valve AoV Pk Afshin: 1.64 AoV Mn Afshin: 1.20 AoV VTI: 0.35 AoV Pk Grad: 11.00 Aov Mn Grad: 7.00 KENA Cont.VTI: 3.44 AI Pk Afshin: 2.89 AI VTI: 2.24 AI Fleming: 0.98 LVOT LVOT Pk Afshin: 1.24 LVOT Mn Afshin: 0.85 LVOT VTI: 0.27 LVOT Pk Grad: 6.00 LVOT Mn Grad: 3.00 LVOT Diam: 2.40 LVOT Area: 4.52 Diastolic Function MV Pk E: 0.67 MV Pk A: 0.48 E/A: 1.40 E'Medial: 5.11 E/E' Med: 13.20 E' Laterial: 5.98 E/E' Lat: 11.30 Right Ventricle TAPSE (mm): 22.10 TVS' Afshin: 14.60 Tricuspid Valve RA Press: 3.00 Great Vessels Aorta Sinus of Valsalva: 3.90 2.0-3.5 cm Ao Asc: 4.20 2.1-3.4 cm Ao Arch: 3.00 Pulmonary Valve PV Pk Afshin: 0.88 Peak PV Grad: 3.00 Updated in Other Vendor System with Status of Final Celio Sotelo MD electronically signed on 07/13/2023 11:38:31 AM with status of Final
== END ==
LOC: HO.CARD 09:44
PROVIDERS: PCP Internal Medicine; Visit Provider Internal Medicine Cardiovascular Disease
DX: I71.20 Thoracic aortic aneurysm, without rupture, unspecified (principal)
CPT/HCPCS: 93306; Q9957

== ENCOUNTER → 2023-07-12 09:48 | Outpatient (BNV) | payer OTHER, SELFPAY | PROVIDERS: PCP Internal Medicine; Visit Provider Internal Medicine Cardiovascular Disease | DX: I35.1 Nonrheumatic aortic (valve) insufficiency (principal); I71.20 Thoracic aortic aneurysm, without rupture, unspecified | CPT/HCPCS: 93306 ==

== ENCOUNTER 2023-07-17 09:28 | Outpatient (REF) | payer OTHER, SELFPAY ==
--- NOTE | ~2023-07-17 | XR_ITS ---
EXAMINATION: XR ABDOMEN KUB CLINICAL INDICATION: Renal calculus. COMPARISON: CT abdomen and pelvis dated 06/18/2018. TECHNIQUE: AP view of the abdomen. FINDINGS: The bowel gas pattern is normal with no evidence of ileus or obstruction. No unusual soft tissue calcifications are noted. There is a left pelvic phlebolith. There are right upper quadrant surgical clips. The bones are unremarkable. XR/XR KUB IMPRESSION: Unremarkable examination. No definite urinary calculus is appreciated.
[2023-07-17 10:49] LABS: Appearance Urine Clear; Color Urine Yellow; Glucose Urine UA Negative (Negative); Leukocyte Esterase Urine Negative (Negative); Nitrite Urine Negative (Negative); Specific Gravity - Urine 1.015 (1.005-1.025); Urine Blood Negative (Negative); Urine Ketones Negative (Negative); Urine Protein Negative (Neg-Trace)
== END 2023-07-17 09:29 | disposition home or self-care (01) ==
LOC: HO.LAB 09:28
PROVIDERS: PCP Internal Medicine; Visit Provider Internal Medicine
DX: N20.0 Calculus of kidney (principal); R30.0 Dysuria
CPT/HCPCS: 74018; 81003

== ENCOUNTER 2023-08-20 12:17 | Outpatient (AMB) | payer OTHER, SELFPAY ==
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
[2023-08-20 12:35] VITALS: BP 110/70; PULSE 49; BMI 28.5
== END 2023-08-20 12:58 | disposition home or self-care (01) ==
PROVIDERS: PCP Internal Medicine; Visit Provider Internal Medicine Cardiovascular Disease
DX: I48.0 Paroxysmal atrial fibrillation (principal); I71.20 Thoracic aortic aneurysm, without rupture, unspecified
CPT/HCPCS: 93010; 99214

== ENCOUNTER → 2023-08-20 12:17 | Outpatient (BNVA) | payer OTHER, SELFPAY | PROVIDERS: PCP Internal Medicine; Visit Provider Internal Medicine Cardiovascular Disease | DX: I48.0 Paroxysmal atrial fibrillation (principal); I71.20 Thoracic aortic aneurysm, without rupture, unspecified; Z79.01 Long term (current) use of anticoagulants; Z79.899 Other long term (current) drug therapy | CPT/HCPCS: 93005 ==

== ENCOUNTER 2023-10-24 16:42 | Outpatient (AMB) | payer OTHER, SELFPAY ==
[2023-10-24 17:05] VITALS: BP 126/82; BMI 28.1
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
== END 2023-10-24 17:32 | disposition home or self-care (01) ==
PROVIDERS: PCP Internal Medicine; Visit Provider Internal Medicine
DX: Z00.00 Encounter for general adult medical examination without abnormal findings (principal); I48.0 Paroxysmal atrial fibrillation; I71.20 Thoracic aortic aneurysm, without rupture, unspecified
CPT/HCPCS: 99396

== ENCOUNTER 2023-10-26 08:28 | Outpatient (REF) | payer OTHER, SELFPAY ==
[2023-10-26 09:54] LABS: Alanine Aminotransferase 14 U/L (0-40); Albumin Level 4.2 g/dL (3.5-5.0); Alkaline Phosphatase 55 U/L (39-117); Anion Gap 12 (12-20); Aspartate Amino Transferase 16 U/L (5-37); Bilirubin Total 0.7 mg/dL (0.0-1.0); Blood Urea Nitrogen 18 mg/dL (9-16); Calcium 9.4 mg/dL (8.4-10.2); Carbon Dioxide 26 mmol/L (22-29); Chloride 106 mmol/L (96-108); Estimated Glomerular Filt Rate > 60; Glucose Fasting 91 mg/dL (60-99); Sodium 140 mmol/L (135-145); Total Protein 6.9 g/dL (6.5-8.0); Uric Acid 6.3 mg/dL (3.4-7.0)
== END 2023-10-26 08:29 | disposition home or self-care (01) ==
LOC: HO.LAB 08:28
PROVIDERS: PCP Internal Medicine; Visit Provider Internal Medicine
DX: Z00.00 Encounter for general adult medical examination without abnormal findings (principal); M10.9 Gout, unspecified
CPT/HCPCS: 36415; 80053; 84550

== ENCOUNTER → 2024-03-04 15:43 | Outpatient (BNVA) | payer OTHER, SELFPAY | PROVIDERS: PCP Internal Medicine; Visit Provider Internal Medicine Cardiovascular Disease ==

== ENCOUNTER 2024-04-27 16:38 | Outpatient (AMB) | payer OTHER, SELFPAY ==
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
[2024-04-27 16:52] VITALS: BP 120/72; BMI 26.9
== END 2024-04-27 17:27 | disposition home or self-care (01) ==
PROVIDERS: PCP Internal Medicine; Visit Provider Internal Medicine
DX: I10 Essential (primary) hypertension (principal); I48.0 Paroxysmal atrial fibrillation; E78.00 Pure hypercholesterolemia, unspecified; M54.50 Low back pain, unspecified; Z23 Encounter for immunization

== ENCOUNTER → 2024-04-27 16:38 | Outpatient (BNVA) | payer OTHER, SELFPAY | PROVIDERS: PCP Internal Medicine; Visit Provider Internal Medicine | DX: I10 Essential (primary) hypertension (principal); I48.0 Paroxysmal atrial fibrillation; E78.00 Pure hypercholesterolemia, unspecified; M54.50 Low back pain, unspecified; Z79.899 Other long term (current) drug therapy | CPT/HCPCS: 90471 ==

== ENCOUNTER → 2024-08-11 09:01 | Outpatient (REF) | payer OTHER, SELFPAY ==
--- NOTE | 2024-08-11 09:04 | CA_ITS ---
Transthoracic Echocardiogram Patient (Last, First, Middle): Ned Cormier A Gender: Male Date of : 1965 Age: 58 Procedure Date: 08/11/2024 Procedure Type: Transthoracic Echocardiogram Location: OP Height: 172.72 cm Weight: 80.29 kg BSA: 1.94 m2 Heart Rate: bpm BP: 120 / 72 mmHg Reed Fixer: EDDIE Referring MD: Celio Sotelo MD Thermoforming Machine Operator: Celio Sotelo MD Symptoms: I48.0 - Paroxysmal atrial fibrillation Study Quality: Fair ECG Rhythm: Sinus Conclusions: - 1. Normal LV ejection fraction of 65-70% 2. Mildly dilated left atrium 3. Bicuspid aortic valve with mild aortic regurgitation 4. Mildly dilated ascending aorta at 4.2 cm 5. Normal RV systolic pressure 6. No gross pericardial effusion Findings Left Ventricle Normal left ventricular size, thickness, and systolic function. The visually estimated ejection fraction is between 65-70%. Spectral Doppler is indicative of a normal filling pattern. Right Ventricle Normal right ventricular cavity size and systolic function. Atria The left atrium is mildly dilated. The right atrium is normal in size. Aortic Valve There is a bicuspid aortic valve. There is mild calcification of the aortic valve. There is no aortic valve stenosis. There is mild aortic valve regurgitation. Mitral Valve There is mild anterior and posterior mitral leaflet thickening. There is mild mitral annular calcification. There is trace mitral valve regurgitation. There is no mitral valve stenosis. Pulmonic Valve The pulmonic valve is likely normal. There is trace pulmonic valve regurgitation. Tricuspid Valve Normal tricuspid valve structure. Tricuspid regurgitation envelope is inadequate for calculation of right ventricular systolic pressure. Normal right atrial pressure. Great Vessels The pulmonary artery was not well visualized. There is mild dilatation of the ascending aorta measuring 4.20 cm. Venous The inferior vena cava is normal in size and collapses greater than 50% with inspiration. Pericardium/Pleural There is no evidence of pericardial effusion. Prior Study Comparison No significant change compared to prior study dated: 07/12/2023. Measurements 2D Linear Measurements IVSd: 0.85 0.6-0.9/0.6-1.0 cm LVIDd: 6.36 3.9-5.3/4.2-5.9 cm LVIDd Index: 3.28 2.4-3.2/2.2-3.1 cm/m2 LVIDs: 4.22 2.0-3.6 cm LVPWd: 0.98 0.7-1.1 cm LA Diam: 4.30 2.7-3.8/3.0-4.0 cm LAIDs Index: 2.22 1.5-2.3 cm/m2 LV Mass: 303.57 67-162/88-224 g LV Mass Index: 156.48 43-95/49-115 g/m2 LVOT Diam: 2.30 3.0+(-)1.3 cm 2D Systolic Function EF 4C: 69.30 >55% EF 2C: 65.10 >55% EF BiP: 67.20 >55% Mitral Valve MV Pk E: 0.73 MV PK A: 0.53 MV Decel Time: 219.00 E/A: 1.40 E'Lateral: 8.49 E'Medial: 6.74 E/E' Med: 10.90 E/E' Lat: 8.60 PHT: 64.00 MVA PHT: 3.44 Decel Starke: 3.35 Aortic Valve AoV Pk Afshin: 2.04 AoV Mn Afshin: 1.31 AoV VTI: 0.50 AoV Pk Grad: 17.00 Aov Mn Grad: 8.00 KENA Cont.VTI: 3.00 LVOT LVOT Pk Afshin: 1.43 LVOT Mn Afshin: 0.85 LVOT VTI: 0.36 LVOT Pk Grad: 8.00 LVOT Mn Grad: 4.00 LVOT Diam: 2.30 LVOT Area: 4.15 Diastolic Function MV Pk E: 0.73 MV Pk A: 0.53 E/A: 1.40 E'Medial: 6.74 E/E' Med: 10.90 E' Laterial: 8.49 E/E' Lat: 8.60 Right Ventricle TAPSE (mm): 24.30 TVS' Afshin: 14.00 Tricuspid Valve TR Pk Afshin: 2.24 TR Pk Grad: 20.00 Great Vessels Aorta Sinus of Valsalva: 4.00 2.0-3.[address] Ridge: 3.44 1.7-3.4 cm Ao Asc: 4.20 2.1-3.4 cm Ao Arch: 2.90 Updated in Other Vendor System with Status of Final Celio Sotelo MD electronically signed on 08/12/2024 3:07:38 PM with status of Final
== END ==
LOC: HO.CARD 09:01
PROVIDERS: PCP Internal Medicine; Visit Provider Internal Medicine Cardiovascular Disease
DX: I48.0 Paroxysmal atrial fibrillation (principal)
CPT/HCPCS: 93306

== ENCOUNTER → 2024-08-11 09:04 | Outpatient (BNV) | payer OTHER, SELFPAY | PROVIDERS: PCP Internal Medicine; Visit Provider Internal Medicine Cardiovascular Disease | DX: Q23.81 Bicuspid aortic valve (principal); I35.1 Nonrheumatic aortic (valve) insufficiency; I35.8 Other nonrheumatic aortic valve disorders; I48.0 Paroxysmal atrial fibrillation | CPT/HCPCS: 93303; 93320; 93325 ==

== ENCOUNTER 2024-08-20 10:44 | Outpatient (AMB) | payer OTHER, SELFPAY ==
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
[2024-08-20 11:04] VITALS: BP 120/80; PULSE 51; BMI 28.5
== END 2024-08-20 11:38 | disposition home or self-care (01) ==
LOC: HO.HCS 10:45
PROVIDERS: PCP Internal Medicine; Visit Provider Internal Medicine Cardiovascular Disease
DX: I48.0 Paroxysmal atrial fibrillation (principal); I71.20 Thoracic aortic aneurysm, without rupture, unspecified
CPT/HCPCS: 93010; 99214

== ENCOUNTER → 2024-08-20 10:44 | Outpatient (BNVA) | payer OTHER, SELFPAY | PROVIDERS: PCP Internal Medicine; Visit Provider Internal Medicine Cardiovascular Disease | DX: I48.0 Paroxysmal atrial fibrillation (principal); I71.20 Thoracic aortic aneurysm, without rupture, unspecified; Z79.01 Long term (current) use of anticoagulants; Z79.899 Other long term (current) drug therapy | CPT/HCPCS: 93005 ==

== ENCOUNTER 2024-08-24 14:20 | Outpatient (AMB) | payer OTHER, SELFPAY ==
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
[2024-08-24 14:39] VITALS: BP 123/75; PULSE 56; BMI 28.6
== END 2024-08-24 14:56 | disposition home or self-care (01) ==
LOC: HO.HGS 14:20
PROVIDERS: PCP Internal Medicine; Visit Provider Surgery
DX: K64.9 Unspecified hemorrhoids (principal)
CPT/HCPCS: 46600; 99203

== ENCOUNTER → 2024-08-24 14:20 | Outpatient (BNVA) | payer OTHER, SELFPAY | PROVIDERS: PCP Internal Medicine; Visit Provider Surgery | DX: K64.9 Unspecified hemorrhoids (principal) | CPT/HCPCS: 46600 ==

== ENCOUNTER 2024-10-17 08:41 | Outpatient (REF) | payer OTHER, SELFPAY ==
[2024-10-17 10:21] LABS: Alanine Aminotransferase 21 U/L (0-40); Albumin Level 4.1 g/dL (3.5-5.0); Alkaline Phosphatase 65 U/L (39-117); Anion Gap 12 (12-20); Aspartate Amino Transferase 20 U/L (5-37); Bilirubin Total 0.7 mg/dL (0.0-1.0); Blood Urea Nitrogen 15 mg/dL (9-16); Calcium 9.2 mg/dL (8.4-10.2); Carbon Dioxide 25 mmol/L (22-29); Chloride 109 mmol/L (96-108); Cholesterol 120 mg/dL (<200); Estimated Glomerular Filt Rate > 60; Glucose Fasting 91 mg/dL (60-99); HDL Cholesterol 32 mg/dL (>40); LDL Cholesterol Calculated 73 mg/dL (<100); Potassium 4.1 mmol/L (3.3-5.1); Sodium 142 mmol/L (135-145); Total Protein 6.9 g/dL (6.5-8.0); Triglycerides 77 mg/dL (<150)
== END 2024-10-17 08:42 | disposition home or self-care (01) ==
LOC: HO.LAB 08:41
PROVIDERS: PCP Internal Medicine; Visit Provider Internal Medicine
DX: I48.0 Paroxysmal atrial fibrillation (principal); E78.5 Hyperlipidemia, unspecified
CPT/HCPCS: 36415; 80053; 80061

== ENCOUNTER 2024-10-26 16:27 | Outpatient (AMB) | payer OTHER, SELFPAY ==
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
[2024-10-26 16:43] VITALS: BP 134/92; BMI 28.1
== END 2024-10-26 17:23 | disposition home or self-care (01) ==
LOC: HO.HMCH 16:27
PROVIDERS: PCP Internal Medicine; Visit Provider Internal Medicine
DX: Z00.00 Encounter for general adult medical examination without abnormal findings (principal); M25.512 Pain in left shoulder

== ENCOUNTER → 2024-10-26 16:27 | Outpatient (BNVA) | payer OTHER, SELFPAY | PROVIDERS: PCP Internal Medicine; Visit Provider Internal Medicine | DX: Z00.00 Encounter for general adult medical examination without abnormal findings (principal); M25.512 Pain in left shoulder | CPT/HCPCS: 96127 ==

== ENCOUNTER 2025-01-07 08:12 | Outpatient (REF) | payer OTHER, SELFPAY ==
--- NOTE | ~2025-01-07 | XR_ITS ---
EXAMINATION: XR SHOULDER 2 OR MORE VIEWS LEFT HISTORY: M25.512 - Pain in left shoulder COMPARISON: There are no prior studies available for comparison. FINDINGS: Two views of the left shoulder are submitted. Osseous mineralization is normal. There is no fracture or dislocation. There is mild narrowing. The glenohumeral joint is maintained. The soft tissues are unremarkable. XR/XR shoulder LT min 2V IMPRESSION: Mild narrowing of the AC joint. Electronically signed by: Ashwin Wiseman MD 01/07/2025 03:08 PM EDT
--- OUTSIDE RECORDS SUMMARY | 2025-01-08 08:16 | XMS_ITS | Clinical Summary ---
Author Organization [facility] Address [address] [facility] [address] [place] [id number] Phone Care Team Providers Care Tight Barrel Inspector Name Role Phone Aixa Marin MD Primary [...] TPA CIGNA TPA CIGNA TPA [place] [address] [place] [address] INSURANCE [facility] INSURANCE Care Teams Tight Barrel Inspector Relationship Specialty Start Date End Date Aixa Marin MD [address] [place] [address] PCP - General Internal Medicine 12/29/21 Additional Source Comments The information contained in this document represents components of the legal health record. It is not the complete legal health record.[facility]
== END 2025-01-07 08:13 | disposition home or self-care (01) ==
LOC: HO.HOSX 08:12
PROVIDERS: Visit Provider Orthopaedic Surgery
DX: M25.512 Pain in left shoulder (principal); M25.312 Other instability, left shoulder; R53.1 Weakness; Z79.899 Other long term (current) drug therapy
CPT/HCPCS: 73030

== ENCOUNTER 2025-01-07 14:29 | Outpatient (AMB) | payer OTHER, SELFPAY ==
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
--- OUTSIDE RECORDS SUMMARY | 2025-01-07 14:38 | XMS_ITS | Clinical Summary ---
Author Organization [facility] Address [address] [facility] [address] [place] [id number] Phone Care Team Providers Care Aerospace Mechanic Name Role Phone Aixa Marin MD Primary Care Provid er Allergies No known active allergies Medications amLODIPine (NORVASC) 10 MG tablet 2 Active atorvastatin (LIPITOR) 10 MG tablet 2 Active hydroCHLOROthiaz holli (HYDRODIURIL) 25 MG tablet 1 tablet. Active metoprolol succinate (TOPROL-XL) 100 MG 24 hr tablet 2 Active lisinopril (PRINIVIL,ZESTRI L) 10 MG tablet 1 tablet. Acti ve HYDROcodone-acet aminophen (XODOL) 5-300 mg per tablet 2 Active methocarbamoL (ROBAXIN) 750 MG tabletIndication s:Bilateral low back pain with bilateral sciatica, unspecified chronicity Take 1 tablet (750 mg total) by mouth 4 (four) times a day as needed. 30 tablet 2 Active Additional Information Patient not taking.Reported on 02/21/2022 Active Problems No known active problems Social History Tobacco Use Types Packs/Day Years Used Date Smoking Tobacco: Never Smokeless Tobacco: Never Alcohol Use Standard Drinks/Week Comments Not Currently 0 (1 standard drink = 0.6 oz pur e alcohol) Education Answer Date Recorded Are you interested in more education? Not on ila e 10/06/2022 Are you concerned about learning? Not on file 10/06/2022 No 10/06/2022 No 10/06/2022 Digital Access Answer Date Recorded No 11/04/2022 No 11/04/2022 No 11/04/2022 Reliable internet access at home? Not on file 11/04/2022 Device with a working camera? Not on file Sex and Gender Information Value Date Recorded Sex Assigned at Not on file Legal Sex Male 2:42 PM EDT Gender Identity Not on file Sexual Orientation Not on file Last Filed Vital Signs Vital Sign Reading Time Taken Comments Blood Pressure 122/76 03/14/2022 10:10 AM EDT Pulse 73 03/14/2022 10:10 AM EDT Temperature 36.6 C (97.9 F) 03/14/2022 10:10 AM EDT Respiratory Rate 16 03/14/2022 10:10 AM EDT Oxygen Saturation 97% 03/14/2022 10:10 AM EDT Inhaled Oxygen Concentration - - Weight 78.9 kg (174 lb) 03/14/2022 10:10 AM EDT Height 172.7 cm (5' 8 ) 03/14/2022 10:10 AM EDT Body Mass Index 26.46 03/14/2022 10:10 AM EDT Plan of Treatment Health Maintenance Due Date Last Done Comments CREATININE LEVEL 1965 LIPID PANEL 1965 POTASSIUM LEVEL 1965 DEPRESSION SCREENING 1977 HEPATITIS C SCREENING 08/14/1983 HIV ONE-TIME SCREENING (18-6 5 YEARS) 08/14/1983 SCREENING FOR DIABETES 2000 COLOGUARD 2010 COLONOSCOPY 2010 COLORECTAL CANCER SCREENING 2010 FIT TEST 2010 FOBT 2010 SIGMOIDOSCOPY 2010 VIRTUAL COLONOSCOPY 2010 PNEUMOCOCCAL VACCINES (50+ years) (1 of 1 - PCV) 08/14/2015 ZOSTER VACCINES (1 of 2) 08/14/2015 COVID-19 VACCINE (2023-2 5 season) 2024 05/20/2021, 10/22/2020, 10/01/2020 Adult Td,Tdap Booster 02/25/2027 02/25/2017 SMOKING STATUS SCREENING (On ce After 26 Yrs) Completed 03/14/2022 HEPATITIS A VACCINES Aged Out No long er eligible based on patient's age to complete this topic HIB VACCINES Aged Out No longer eligi ble based on patient's age to complete this topic MENINGOCOCCAL VACCINES (ACWY) Aged Out No longer eligible based on patient's age to complete this topic MENINGOCOCCAL VACCINES (B) Aged Out N o longer eligible based on patient's age to complete this topic Medical Devices Not on file Insurance CIGNA TPA CIGNA TPA CIGNA TPA CIGNA TPA CIGNA TPA CIGNA TPA CIGNA TPA CIG[place] [address] [place] [address] INSURANCE [facility] INSURANCE Care Teams Aerospace Mechanic Relationship Specialty Start Date End Date Aixa Marin MD [address] [place] [address] PCP - General Internal Medicine 12/29/21 Additional Source Comments The information contained in this document represents components of the legal health record. It is not the complete legal health record.[facility]
== END 2025-01-07 15:41 | disposition home or self-care (01) ==
LOC: HO.HOS 14:30
PROVIDERS: PCP Internal Medicine; Visit Provider Orthopaedic Surgery
DX: M25.312 Other instability, left shoulder (principal)
CPT/HCPCS: 99203

== ENCOUNTER → 2025-01-07 14:36 | Outpatient (BNV) | payer OTHER, SELFPAY | PROVIDERS: Visit Provider Radiology Diagnostic Radiology | DX: M25.512 Pain in left shoulder (principal) | CPT/HCPCS: 73030 ==

== ENCOUNTER → 2025-01-21 18:37 | Outpatient (BNV) | payer BC, SELFPAY | PROVIDERS: PCP Internal Medicine; Visit Provider Radiology Diagnostic Radiology | DX: M75.112 Incomplete rotator cuff tear or rupture of left shoulder, not specified as traumatic (principal) | CPT/HCPCS: 73221 ==

== ENCOUNTER 2025-01-21 18:54 | Outpatient (REF) | payer BC, SELFPAY ==
--- NOTE | ~2025-01-21 | MR_ITS ---
EXAMINATION: MR SHOULDER WITHOUT CONTRAST, LEFT CLINICAL INFORMATION: M 25.312. Other instability, left shoulder. COMPARISON: Correlated to x-ray dated January 07, 2025. TECHNIQUE: MRI of the shoulder without contrast was performed on a high-field scanner. FINDINGS: ROTATOR CUFF: There is a focal intrasubstance signal abnormality within the supraspinatus tendon extending to the underneath surface without retraction. Mild signal within the mild tendinopathy of the supraspinatus BICEPS: Trace of fluid within the long biceps tendon CORACOACROMIAL ARCH: The undersurface of the acromion is curved with with degenerative changes and superior and inferior spur deforming the superior margin of the supraspinatus muscle-tendon . LABRUM/CAPSULE: Thinning of the anterior labrum. GLENOHUMERAL JOINT/MARROW: Trace of fluid at the glenohumeral joint. There is a 2 cm lobulated the fluid within the subcoracoid bursa. Bone marrow inhomogeneity. There is a mild bone marrow signal within the posterior humeral head and at the greater tuberosity. There is bone marrow signal at the acromioclavicular joint with the degenerative changes along the articular surface. MR/MR shoulder LT wo con IMPRESSION: Incomplete tear, supraspinatus tendon. Degenerative changes in the acromioclavicular joint suggesting impingement syndrome to the myotendon of the supraspinatus Concerning subcoracoid bursitis.. Electronically signed by: Yunior Albarado MD 01/22/2025 07:58 AM EDT
== END 2025-01-21 18:55 | disposition home or self-care (01) ==
LOC: HO.MRI 18:54
PROVIDERS: PCP Internal Medicine; Visit Provider Orthopaedic Surgery
DX: M25.312 Other instability, left shoulder (principal); M75.52 Bursitis of left shoulder; S46.812A Strain of other muscles, fascia and tendons at shoulder and upper arm level, left arm, initial encounter; X58.XXXA Exposure to other specified factors, initial encounter; Y93.9 Activity, unspecified; Y92.9 Unspecified place or not applicable; Y99.9 Unspecified external cause status
CPT/HCPCS: 73221

== ENCOUNTER 2025-02-03 09:26 | Outpatient (AMB) | payer BC, SELFPAY ==
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
[2025-02-03 09:34] VITALS: BMI 26.3
--- OUTSIDE RECORDS SUMMARY | 2025-02-03 10:00 | XMS_ITS | Clinical Summary ---
Author Organization [facility] Address [address] [place] [address] Phone Care Team Providers Care Water Commissioner Name Role Phone Aixa Marin MD Primary [...] TPA CIGNA TPA [place]IG[place] [address] [place] [address] INSURANCE [facility] INSURANCE Care Teams Water Commissioner Relationship Specialty Start Date End Date Aixa Marin MD [address] [place] [address] PCP - General Internal Medicine 12/29/21 Additional Source Comments The information contained in this document represents components of the legal health record. It is not the complete legal health record.[facility]
== END 2025-02-03 09:48 | disposition home or self-care (01) ==
LOC: HO.HOS 09:26
PROVIDERS: PCP Internal Medicine; Visit Provider Orthopaedic Surgery
DX: M75.42 Impingement syndrome of left shoulder (principal)
CPT/HCPCS: 99214

== ENCOUNTER 2025-03-01 16:44 | Outpatient (AMB) | payer BC, SELFPAY ==
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
[2025-03-01 17:00] VITALS: BP 118/80; PULSE 56; TEMP 36.3; O2SAT 96; BMI 27.1
--- OUTSIDE RECORDS SUMMARY | 2025-03-01 18:23 | XMS_ITS | Clinical Summary ---
Author Organization [facility] Address [address] [facility] [facility] [address] [place] [address] Phone Care Team Providers Care Roll Over Press Operator Name Role Phone Aixa Marin MD Primary [...] HEPATITIS C SCREENING 08/14/1983 HIV ONE-TIME SCREENING (18-65 YEARS) 08/14/1983 SCREENING FOR DIABETES 2000 COLOGUARD 2010 COLONOSCOPY 2010 COLORECTAL CANCER SCREENING 2010 FIT TEST 2010 FOBT 2010 SIGMOIDOSCOPY 2010 VIRTUAL COLONOSCOPY 2010 PNEUMOCOCCAL VACCINES (50+ years) (1 of 1 - PCV) 08/14/2015 ZOSTER VACCINES (1 of 2) 08/14/2015 INFLUENZA VACCINE (#1) 2025 , 04/30/2020, 03/11/2019, Additional history exists COVID-19 VACCINE ( season) 2025 05/20/2021, 10/22/2020, 10/01/2020 Adult Td,Tdap Booster 02/25/2027 02/25/2017 SMOKING STATUS SCREENING (Once After 26 Yrs) Completed 03/14/2022 HEPATITIS A [...] Insurance CIGNA [place] [id number] CIGNA TPA CIGNA TPA CIGNA TPA CIGNA TPA CIGNA TPA CIGNA TPA [facility] INSURANCE [employer] Care Teams Roll Over Press Operator Relationship Specialty Start Date End Date Aixa Marin MD [address] [place] [address] PCP - General Internal Medicine 12/29/21 Additional Source Comments The information contained in this document represents components of the legal health record. It is not the complete legal health record.[facility]
== END 2025-03-01 17:42 | disposition home or self-care (01) ==
LOC: HO.HMCH 16:45
PROVIDERS: PCP Internal Medicine; Visit Provider Internal Medicine
DX: I48.0 Paroxysmal atrial fibrillation (principal); I10 Essential (primary) hypertension; E78.00 Pure hypercholesterolemia, unspecified; M75.42 Impingement syndrome of left shoulder; M54.16 Radiculopathy, lumbar region

== ENCOUNTER → 2025-03-01 16:44 | Outpatient (BNVA) | payer BC, SELFPAY | PROVIDERS: PCP Internal Medicine; Visit Provider Internal Medicine | DX: I10 Essential (primary) hypertension (principal); I48.0 Paroxysmal atrial fibrillation; E78.00 Pure hypercholesterolemia, unspecified; M54.16 Radiculopathy, lumbar region; M25.812 Other specified joint disorders, left shoulder; M75.42 Impingement syndrome of left shoulder; D64.9 Anemia, unspecified | CPT/HCPCS: 96127 ==

== ENCOUNTER 2025-03-24 12:27 | Outpatient (AMB) | payer BC, SELFPAY ==
[2025-03-24 12:32] VITALS: BP 118/74; PULSE 60; TEMP 36.3; O2SAT 96; BMI 26.3
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
--- OUTSIDE RECORDS SUMMARY | 2025-03-24 15:43 | XMS_ITS | Clinical Summary ---
Author Organization [facility] Address [address] [place] [id number] Phone Care Team Providers Care Cardiac Tech Name Role Phone Aixa Marin MD Primary [...] 10/22/2020, 10/01/2020 Adult Td,Tdap Booster 02/25/2027 02/25/2017 RSV VACCINE (1 - 1-dose 75+ series) 2040 SMOKING STATUS SCREENING (Once After 26 Yrs) [...] Devices Not on file Insurance [place] [place] [facility] [place] Address: [address] [address] [employer] [place] [facility] [place]: [address] [phone] [employer] [place] [facility] [place]: [address] [address] [place] [facility] [place] Address: [address] [address] [place] [facility] [place] Address[place] [address] [address] [employer] C[employer]PA [employer] Care Teams Cardiac Tech Relationship Specialty Start Date End Date Aixa Marin MD [address] [place] [address] PCP - General Internal Medicine 12/29/21 Additional Source Comments The information contained in this document represents components of the legal health record. It is not the complete legal health record.[facility]
== END 2025-03-24 12:55 | disposition home or self-care (01) ==
LOC: HO.HMCH 12:28
PROVIDERS: PCP Internal Medicine; Visit Provider Internal Medicine
DX: Z01.818 Encounter for other preprocedural examination (principal); I48.0 Paroxysmal atrial fibrillation; I10 Essential (primary) hypertension; E78.00 Pure hypercholesterolemia, unspecified

== ENCOUNTER → 2025-03-24 12:27 | Outpatient (BNVA) | payer BC, SELFPAY | PROVIDERS: PCP Internal Medicine; Visit Provider Internal Medicine | DX: Z01.818 Encounter for other preprocedural examination (principal); S46.912A Strain of unspecified muscle, fascia and tendon at shoulder and upper arm level, left arm, initial encounter; M51.360 Other intervertebral disc degeneration, lumbar region with discogenic back pain only; I10 Essential (primary) hypertension; I48.91 Unspecified atrial fibrillation; I48.0 Paroxysmal atrial fibrillation; E78.00 Pure hypercholesterolemia, unspecified; X58.XXXA Exposure to other specified factors, initial encounter; Y93.9 Activity, unspecified; Y92.9 Unspecified place or not applicable; Y99.9 Unspecified external cause status | CPT/HCPCS: 96127 ==

== ENCOUNTER 2025-04-03 08:39 | Outpatient (REF) | payer BC, SELFPAY ==
[2025-04-03 08:50] LABS: MANUAL DIFF FLAG NO
[2025-04-03 09:54] LABS: Hematocrit 41.8 % (42.0-52.0); Hemoglobin 13.9 g/dl (14.0-18.0); Imm Gran Abs Auto 0.02 X10*3/uL (0.00-0.03); Imm Gran Pct Auto 0.4 % (0.0-0.4); Lymphocytes Absolute Auto 1.4 X10*3/uL (1.2-4.9); Mean Corpuscular HGB Conc 33.3 g/dl (31.0-36.0); Mean Corpuscular Hemoglobin 33.5 pg (27.0-33.0); Mean Corpuscular Volume 100.7 fL (80.0-98.0); NRBC Abs Auto 0.000 X10*3/uL (0.0-0.012); NRBC Pct Auto 0.0 /100WBC (0.0-0.2); Platelet Count 222 X10*3/uL (160-400); Red Blood Count 4.15 X10*6/uL (4.60-5.80); White Blood Count 4.6 X10*3/uL (4.8-10.8)
[2025-04-03 10:33] LABS: Alanine Aminotransferase 14 U/L (0-40); Albumin Level 4.3 g/dL (3.5-5.0); Alkaline Phosphatase 50 U/L (39-117); Anion Gap 11 (12-20); Aspartate Amino Transferase 21 U/L (5-37); Blood Urea Nitrogen 16 mg/dL (9-16); Calcium 9.0 mg/dL (8.4-10.2); Carbon Dioxide 27 mmol/L (22-29); Chloride 107 mmol/L (96-108); Cholesterol 129 mg/dL (<200); Estimated Glomerular Filt Rate > 60; HDL Cholesterol 38 mg/dL (>40); Potassium 4.2 mmol/L (3.3-5.1); Sodium 141 mmol/L (135-145); Total Protein 6.7 g/dL (6.5-8.0); Triglycerides 70 mg/dL (<150)
== END 2025-04-03 08:40 | disposition home or self-care (01) ==
LOC: HO.LAB 08:39
PROVIDERS: PCP Internal Medicine; Visit Provider Internal Medicine
DX: Z01.818 Encounter for other preprocedural examination (principal); E78.5 Hyperlipidemia, unspecified; I48.0 Paroxysmal atrial fibrillation
CPT/HCPCS: 36415; 80053; 80061; 85025

== ENCOUNTER → 2025-04-07 08:45 | Outpatient (REF) | payer BC, SELFPAY ==
--- NOTE | 2025-04-07 08:49 | CA_ITS ---
Acquisition Time: 2025-04-07 09:08:56 Total Exercise Time: 00:10:30 Test Indications: Abnormal ECG,Pre-Op Evaluation Medications: AMLODIPINE ATORVASTATIN FLECAINIDE METOPROLOL XARELTO TIZANADINE Protocol: CHRIS Max HR: 134 BPM 83% of Pred: 161 BPM Max BP: 194/78 mmHG Max Work Load: 12.5 METS Exercise stress test with exercise 10 mins 30 secs of Chris Protocol, achieving 83% MPHR, with reports of SOB and dizziness, with isolated PACs and PVCs, with normotensive response to exercise. Without any EKG changes meeting criteria for ischemia. In recovery, pt's dizziness resolved and breathing returned to baseline. Echo images obtained by tech at rest and post peak exercise. Definity contrast utilized. Test reviewed with Dr. Dee. Referred By: Celio Sotelo Electronically Signed By: Rj Frias
== END ==
LOC: HO.CARD 08:45
PROVIDERS: PCP Internal Medicine; Visit Provider Internal Medicine Cardiovascular Disease
DX: R07.9 Chest pain, unspecified (principal)
CPT/HCPCS: 93350; Q9957

== ENCOUNTER → 2025-04-07 08:49 | Outpatient (BNV) | payer BC, SELFPAY | PROVIDERS: PCP Internal Medicine | DX: I49.1 Atrial premature depolarization (principal); I49.3 Ventricular premature depolarization; R06.02 Shortness of breath; R42 Dizziness and giddiness | CPT/HCPCS: 93016; 93018; 93350; 93352 ==

== ENCOUNTER 2025-04-21 08:00 | Outpatient (AMB) | payer BC, SELFPAY ==
--- OUTSIDE RECORDS SUMMARY | 2025-04-21 08:03 | XMS_ITS | Clinical Summary ---
Author Organization [facility] Address [address] [facility] [address] [place] [id number] Phone Care Team Providers Care Allergist Name Role Phone Aixa Marin MD Primary [...] 08/14/1983 HIV ONE-TIME SCREENING (18-65 YEARS) 08/14/1983 COLOGUARD 2010 COLONOSCOPY 2010 COLORECTAL CANCER SCREENING 2010 FIT TEST 2010 FOBT 2010 SIGMOIDOSCOPY 2010 VIRTUAL COLONOSCOPY 2010 PNEUMOCOCCAL VACCINES (50+ years) (1 of 1 - PCV) 08/14/2015 ZOSTER VACCINES (1 of 2) 08/14/2015 INFLUENZA VACCINE (#1) 2025 , 04/30/2020, 03/11/2019, Additional history exists COVID-19 VACCINE ( - season) 2025 05/20/2021, 10/22/2020, 10/01/2020 Adult Td,Tdap Booster 02/25/2027 02/25/2017 RSV VACCINE (1 - 1-dose 75+ series) 2040 SMOKING STATUS SCREENING (Once After 26 Yrs) Completed 03/14/2022 HEPATITIS A VACCINES Aged Out No long er eligible based on patient's age to complete this topic HIB VACCINES Aged Out No longer eligi ble based on patient's age to complete this topic IPV VACCINES Aged Out No longer eligi ble based on patient's age to complete this topic MENINGOCOCCAL VACCINES (ACWY) Aged Out No longer eligible based on patient's age to complete this topic MENINGOCOCCAL VACCINES (B) Aged Out N o longer eligible based on patient's age to complete this topic Medical Devices Not on file Insurance [employer] [facility] [phone] [employer] C[employer] T[employer] C[employer] CIG[employer]PA [employer]PA [employer] Care Teams Allergist Relationship Specialty Start Date End Date Aixa Marin MD [address] [place] [address] PCP - General Internal Medicine 12/29/21 Additional Source Comments The information contained in this document represents components of the legal health record. It is not the complete legal health record.[facility]
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
[2025-04-21 08:12] VITALS: BMI 26.3
== END 2025-04-21 08:21 | disposition home or self-care (01) ==
LOC: HO.HOS 08:00
PROVIDERS: PCP Internal Medicine; Visit Provider Orthopaedic Surgery
DX: M75.42 Impingement syndrome of left shoulder (principal)
CPT/HCPCS: 99214

== ENCOUNTER 2025-04-30 07:16 | Day surgery (SDC) | payer BC, SELFPAY ==
[2025-04-16 11:01] VITALS: BMI 26.6
[2025-04-30] VITALS (7 sets, daily range): BP systolic 106–126; BP diastolic 56–70; PULSE 49–56; RESP 12–18; TEMP 36.1–36.6; O2SAT 96–100; BMI 26.8
[2025-04-30] MEDS: Lactated Ringers 1,000 ML 100 ML IVCONT (07:57)
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
--- NOTE | 2025-04-30 10:22 | P.BOP_ITS ---
Brief Operative Note Date of Service: 04/30/25 Pre-op diagnosis: Left shoulder impingement syndrome, left shoulder acromioclavicular joint arthritis, left shoulder adhesive capsulitis Post-op diagnosis: same Procedure: Left shoulder arthroscopic distal clavicle excision, left shoulder arthroscopic acromioplasty, left shoulder arthroscopic anterior capsular release, left shoulder manipulation under anesthesia Implants: None Surgeon: John Martin MD Anesthesia: regional Was an Chemical Plant Operator Supervisor used for this Procedure?: No Estimated blood loss (mL): 10 Pathology: none sent Condition: stable Disposition: PACU
--- NOTE | 2025-04-30 10:23 | W.PM.OPN ---
Operative Note Operative Note Date of Service: 04/30/25 Narrative: After the patient was identified as Ned Cormier and his left shoulder was initialed by myself the patient was brought to the holding area where a left shoulder interscalene regional block was performed by the anesthesiologist in routine fashion. The patient was then brought to the operating room where general anesthesia was induced by the anesthesiologist in routine fashion. The patient was given 2 g of IV Ancef preoperatively for infection prophylaxis. Examination under anesthesia of the patient's left shoulder showed decreased range of motion when compared to the right shoulder. The patient's left shoulder had forward flexion to 130 degrees compared to 170 degrees, external rotation to 40 degrees compared to 70 degrees, and internal rotation to 40 degrees compared to 50 degrees. The patient was gently positioned in the beach chair position with all bony prominences well padded. The patient's left shoulder region and upper extremity were prepped and draped in sterile fashion. A formal time-out was completed. A #11 scalpel blade was used to make a posterior portal 2 cm inferior and 1 cm medial to the posterolateral corner of the acromion. Blunt trocar technique was used to enter the glenohumeral joint in routine fashion. An anterior portal was made just lateral to the coracoid process after proper positioning was confirmed using a spinal needle. Diagnostic arthroscopy showed minimal degenerative changes of the glenoid and humeral head articular surfaces. There was no evidence of rotator cuff tearing. There was no evidence of injury to the biceps tendon or its insertion onto the glenoid. There was inflammation of the anterior joint capsule consistent with adhesive capsulitis. The ArthroCare Wand was then used to perform an anterior capsular release between the inferior border of the biceps tendon and the superior border of the subscapularis tendon. The arthroscope was then placed from the posterior portal into the subacromial space. A lateral portal was made 2 fingerbreadths lateral to the anterior lateral corner of the acromion. The ArthroCare Wand was used to ablate soft tissues along the undersurface of the acromion as well as to excise the coracoacromial ligament. There was a sharp spur along the undersurface of the acromion which was removed using the hooded bur. The arthroscope was then placed into the lateral portal and the acromioplasty was completed with the bur in the posterior portal using the posterior aspect of the acromion as a cutting block. The ArthroCare Wand was then brought in through the anterior portal and was used to ablate soft tissues along the acromioclavicular joint and distal clavicle. The posterior and superior ligamentous structures were left intact. A distal clavicle excision of 8 mm was performed using the hooded bur. Any remaining bursal tissue was removed using the arthroscopic shaver. The subacromial space was irrigated and then drained. All arthroscopic instruments were removed. A gentle manipulation under anesthesia was then performed. Full passive range of motion was easily attained. The 3 portals were closed with 3-0 nylon interrupted suture. The subacromial space was injected with Marcaine. Dry sterile dressing was placed over all incisions. The patient's left upper extremity was placed into a sling. The patient was awoken and extubated in the operating room. The patient was transferred to the recovery room in stable condition.
== END 2025-04-30 11:35 | disposition home or self-care (01) ==
PROVIDERS: PCP Internal Medicine; Visit Provider Orthopaedic Surgery
PROC: (CPT 29805; principal; 2025-04-30 09:00)
DX: M75.42 Impingement syndrome of left shoulder (principal); M75.02 Adhesive capsulitis of left shoulder; M25.512 Pain in left shoulder; M25.612 Stiffness of left shoulder, not elsewhere classified; M19.012 Primary osteoarthritis, left shoulder; I48.0 Paroxysmal atrial fibrillation; I10 Essential (primary) hypertension; E78.00 Pure hypercholesterolemia, unspecified; N20.0 Calculus of kidney; I35.1 Nonrheumatic aortic (valve) insufficiency; I71.20 Thoracic aortic aneurysm, without rupture, unspecified; Q23.81 Bicuspid aortic valve; G89.29 Other chronic pain; M54.9 Dorsalgia, unspecified; Z79.01 Long term (current) use of anticoagulants; Z79.899 Other long term (current) drug therapy; Z90.49 Acquired absence of other specified parts of digestive tract; Z98.890 Other specified postprocedural states
CPT/HCPCS: 29824; 29825; 29826; J0131; J0165; J0690; J0696; J1100; J2003; J2250; J2405; J2704; J2795; J3010

== ENCOUNTER → 2025-04-30 07:16 | Outpatient (BNV) | payer BC, SELFPAY | PROVIDERS: PCP Internal Medicine; Visit Provider Orthopaedic Surgery | DX: M75.42 Impingement syndrome of left shoulder (principal); M19.012 Primary osteoarthritis, left shoulder; M75.02 Adhesive capsulitis of left shoulder | CPT/HCPCS: 29824; 29826 ==

== ENCOUNTER 2025-05-13 10:33 | Outpatient (AMB) | payer BC, SELFPAY ==
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
== END 2025-05-13 10:58 | disposition home or self-care (01) ==
LOC: HO.HOS 10:34
PROVIDERS: PCP Internal Medicine; Visit Provider Orthopaedic Surgery
DX: M25.512 Pain in left shoulder (principal)
CPT/HCPCS: 99024